=== PATIENT | male | born 1975 | race Two or more races ===

== ENCOUNTER 2021-04-07 00:22 | Emergency (ER) | payer SELFPAY ==
[2021-04-07] MEDS ORDERED: KETOROLAC TROMETHAMINE 60 MG/2 ML VIAL ONE (00:28)
[2021-04-07] MEDS ORDERED: KETOROLAC TROMETHAMINE 60 MG/2 ML VIAL IM ONE (00:29)
[2021-04-07 00:36] VITALS: BP 159/113; PULSE 75; TEMP 98; BMI 26.9
== END 2021-04-07 00:49 | disposition home or self-care (01) ==
LOC: FER 00:22
PROC: 3E0233Z Introduction of Anti-inflammatory into Muscle, Percutaneous Approach (ICD-10-PCS; principal; 2021-04-07)
DX: R51.9 Headache, unspecified (principal)
CPT/HCPCS: 99284-25

== ENCOUNTER 2023-07-18 22:58 | Emergency (ER) | payer OTHER ==
[2023-07-18 23:10] VITALS: BP 160/103; PULSE 76; RESP 20; TEMP 98.7; BMI 26.9
== END 2023-07-19 00:55 | disposition left against medical advice (07) ==
LOC: JER 22:58
DX: I10 Essential (primary) hypertension (principal); R51.9 Headache, unspecified
CPT/HCPCS: 93005; 93010; 99281-25